=== PATIENT | female | born 1960 | race Caucasian/White ===

== ENCOUNTER 2017-07-01 14:57 | Emergency (ER) | payer BC ==
[2017-07-01 15:10] VITALS: BP 137/85; RESP 18; O2SAT 98
--- NOTE | 2017-07-01 15:33 | C.PDOC ---
History Of Present Illness 56 y/o female presents to the ED complaining that she awoke today with pain and stiffness to the bilateral shoulders and upper back. 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 She denies any neck pain or stiffness, fever, chills, numbness, or focal weakness. Did not take any medications for pain prior to arrival. Time Seen by Provider: 07/01/17 15:19 Chief Complaint (Nursing): High Blood Pressure History Per: Patient History/Exam Limitations: no limitations Onset/Duration Of Symptoms: Days (x1) Current Symptoms Are (Timing): Still Present Past Medical History Reviewed: Historical Data, Nursing Documentation, Vital Signs Vital Signs: Last Vital Signs Temp 97.6 F 07/01/17 15:06 Pulse 63 07/01/17 15:06 Resp 18 07/01/17 15:06 BP 137/85 07/01/17 15:06 Pulse Ox 98 07/01/17 15:33 - Medical History PMH: HTN Other Surgeries: Bilateral knee surgery Family History: States: No Known Family Hx - Social History Hx Tobacco Use: No Hx Alcohol Use: Yes Hx Substance Use: No - Immunization History Hx Tetanus Toxoid Vaccination: No Hx Influenza Vaccination: No Hx Pneumococcal Vaccination: No Review Of Systems Except As Marked, All Systems Reviewed And Found Negative. Constitutional: Negative for: Fever, Chills Musculoskeletal: Positive for: Shoulder Pain (bilateral), Back Pain (upper). Negative for: Neck Pain Neurological: Negative for: Weakness, Numbness Physical Exam - Physical Exam Appears: Non-toxic, No Acute Distress Skin: Warm, Dry, No Rash Head: Atraumatic, Normacephalic Eye(s): bilateral: Normal Inspection, PERRL, EOMI Oral Mucosa: Moist Neck: Normal ROM, Supple Chest: Symmetrical Cardiovascular: Rhythm Regular, No Murmur Respiratory: Normal Breath Sounds, No Rales, No Rhonchi, No Wheezing Gastrointestinal/Abdominal: Soft, No Tenderness, No Distention Back: No Vertebral Tenderness, Other (mild tenderness across the bilateral trapezius muscles) Extremity: Normal ROM (with full ROM of shoulders), Capillary Refill (< 2 sec), No Deformity, No Swelling, Other (Sensation intact) Pulses: Left Radial: Normal, Right Radial: Normal Neurological/Psych: Oriented x3, Normal Speech, No Other (focal deficits) Gait: Steady ED Course And Treatment O2 Sat by Pulse Oximetry: 98 (RA) Pulse Ox Interpretation: Normal Medical Decision Making Medical Decision Making: Initial Impression: Muscular spasm of the upper back Plan: Patient is medically stable, will discharge home with rx for Flexeril. Advised patient to follow up with the clinic for further evaluation. Disposition Counseled Patient/Family Regarding: Diagnosis, Need For Followup, Rx Given - Disposition Referrals: [facility] [Outside] Disposition: HOME/ ROUTINE Disposition Time: 15:30 Condition: STABLE Additional Instructions: Take Ibuprophen 2-3 tablets with food every 6 hours if needed for pain. Use a topical rub like Icy Hot for local relief. Prescriptions: Cyclobenzaprine [Cyclobenzaprine HCl] 10 mg PO TID PRN #20 tab PRN Reason: Pain, Moderate (4-7) Instructions: Muscle Spasms (DC) Forms: [facility] ([place]) - POA Present On Arrival: None - Clinical Impression Clinical Impression: Spasm of back muscles - Scribe Statement The provider has reviewed the documentation as recorded by the Ioana Henriquez Provider Attestation: All medical record entries made by the Ioana were at my direction and personally dictated by me. I have reviewed the chart and agree that the record accurately reflects my personal performance of the history, physical exam, medical decision making, and the department course for this patient. I have also personally directed, reviewed, and agree with the discharge instructions and disposition.
[2017-07-01 15:40] VITALS: PULSE 78; TEMP 98
== END 2017-07-01 15:42 | disposition home or self-care (01) ==
LOC: C.ER 14:57
DX: M62.830 Muscle spasm of back (principal)